=== PATIENT | female | born 1955 | race Two or more races ===

== ENCOUNTER 2025-07-24 14:24 | Emergency (ER) | payer OTHER ==
[~2025-07-24] VITALS: Ht 157.5 cm; Wt 58.1 kg
[2025-07-24] MEDS ORDERED: LOSARTAN-HCTZ1 EAC2 (15:23)
[2025-07-24] MEDS ORDERED: METFORMIN HCL500 M3 (15:23)
[2025-07-24] MEDS ORDERED: NADOLOL40 MG (15:23)
[2025-07-24] MEDS ORDERED: SYNTHROID100 MCG (15:24)
[2025-07-24] MEDS ORDERED: GLIMEPIRIDE4 M1 (15:24)
[2025-07-24] MEDS ORDERED: ATORVASTATIN CA10 MG (15:24)
[2025-07-24] MEDS ORDERED: ONDANSETRON HCL 2 MG/ML VIAL IV ONE (17:00)
[2025-07-24] MEDS ORDERED: FAMOTIDINE/PF 20 MG/2 ML VIAL IV ONE (17:00)
[2025-07-24] MEDS ORDERED: 0.9 % SODIUM CHLORIDE 1,000 ML IV SCH (17:00)
[2025-07-24 17:39] LABS: ERYTHROCYTE SEDIMENTATION RATE 21 mm/hr (0-30)
[2025-07-24 17:40] LABS: BASO % 0.2 % (0.1-1.2); EOS # 0.19 (0.04-0.54); EOS % 2.1 % (0.7-7.0); LYMPH # 2.87 (1.18-3.74); LYMPH % 31.1 % (19.3-53.1); MEAN PLATELET VOLUME 11.10 fl (9.4-12.4); MONO # 0.67 (0.24-0.82); MONO % 7.3 % (4.7-12.5); NEUT # 5.44 (1.56-6.13); NEUT % 58.9 % (34.0-71.1); RED CELL DISTRIBUTION WIDTH 15.5 % (11.6-14.4)
[2025-07-24 17:48] LABS: URINE APPEARANCE Clear; URINE BILIRRUBIN Negative (NEGATIVE); URINE BLOOD Negative; URINE COLOR Yellow; URINE LEUKOCYTE Negative; URINE NITRATE Negative; URINE PROTEIN Negative (NEGATIVE); URINE UROBILINOGEN 0.2 E.U./dl
[2025-07-24 17:52] LABS: URINE BACTERIA 7.1 uL (0.0-1933); URINE EPITHELIAL CELLS 2.6 uL (0.0-38.8); URINE RBC 3.5 uL (0.0-20.8); URINE WBC 2.7 uL (0.0-23.2)
[2025-07-24 18:02] LABS: URINE CAST 0.14 uL (0.0-1.40); URINE GLUCOSE >=1000 MG/DL (NEGATIVE); URINE KETONE >=160 (NEGATIVE)
[2025-07-24 18:14] LABS: ALT/SGPT 27 U/L (12-78); AST/SGOT 21 U/L (15-37); BILIRUBIN TOTAL 0.81 mg/dL (0.3-1.2); BUN CREA RATIO 15 (7.0-25.0); CREATININE SERUM 0.87 mg/dL (0.55-1.02); GFR 64.94; GLOBULINA 4.0 G/DL (2.4-3.5); GLUCOSE FASTING 384 mg/dL (65-100); OSMOLALITY SERUM 288 MOSM/KG (275-295)
[2025-07-24] MEDS ORDERED: INSULIN REGULAR, HUMAN 1,000 UNIT/10 ML UNITS SUBCUTANEO ONE (20:00)
[2025-07-24] MEDS ORDERED: METFORMIN HCL1000 M2 PO (22:04)
[2025-07-25] MEDS ORDERED: INSULIN REGULAR, HUMAN 1,000 UNIT/10 ML UNITS SUBCUTANEO ONE (00:15)
[2025-07-25] MEDS ORDERED: 0.9 % SODIUM CHLORIDE 1,000 ML IV SCH (00:15)
[2025-07-25] MEDS ORDERED: INSULIN REGULAR, HUMAN 1,000 UNIT/10 ML UNITS IV STA (02:05)
[2025-07-25] MEDS ORDERED: INSULIN REGULAR, HUMAN 1,000 UNIT/10 ML UNITS IV ONE (03:15)
== END 2025-07-25 04:20 | disposition home or self-care (01) ==
LOC: ER 14:24
PROVIDERS: Student in an Organized Health Care Education/Training Program
DX: E11.65 Type 2 diabetes mellitus with hyperglycemia (principal); I10 Essential (primary) hypertension; E03.8 Other specified hypothyroidism; Z88.2 Allergy status to sulfonamides
CPT/HCPCS: 36415; 71045; 82803; 96365; 96366; 99283; J1815 ×2; J2405; J3490; J7030

== ENCOUNTER 2025-07-26 13:28 | Inpatient (IN) | payer OTHER ==
[~2025-07-26] VITALS: Ht 157.5 cm; Wt 59.0 kg
[~2025-07-26 13:28] MED LIST: ATORVASTATIN CA10 MG; GLIMEPIRIDE4 M1; LOSARTAN-HCTZ1 EAC2; METFORMIN HCL1000 M2 PO; METFORMIN HCL500 M3; NADOLOL40 MG; SYNTHROID100 MCG
--- NOTE | 2025-07-26 14:02 | NUR ---
PACIENTE FAMINA, S/V EN PARAMETROS NORMALES, GLUCOSA 457 MG/DL, SE CONSULTA CON LA KAIDEN. TOSTE, SE ORDENA 10 UNIDADES INSULINA R, IV 0.9 FULL DRIP, SE MEGHA FBS, SE UBICA EBN CAMA 12 PARA EVALUACION.
[2025-07-26] MEDS ORDERED: 0.9 % SODIUM CHLORIDE 1,000 ML IV SCH (14:30)
[2025-07-26] MEDS ORDERED: INSULIN REGULAR, HUMAN 1,000 UNIT/10 ML UNITS IV ONE (14:30)
[2025-07-26 14:44] LABS: BASO % 0.1 % (0.1-1.2); EOS # 0.05 (0.04-0.54); EOS % 0.4 % (0.7-7.0); LYMPH # 1.12 (1.18-3.74); LYMPH % 8.4 % (19.3-53.1); MEAN PLATELET VOLUME 11.00 fl (9.4-12.4); MONO # 0.84 (0.24-0.82); MONO % 6.3 % (4.7-12.5); NEUT # 11.31 (1.56-6.13); NEUT % 84.5 % (34.0-71.1); RED CELL DISTRIBUTION WIDTH 15.9 % (11.6-14.4)
--- NOTE | 2025-07-26 14:48 | NUR ---
PACIENTE FEMINA, C/C HIPERGLICEMIA, SE ROSLYN MUESTRAS LLEVADAS AL LABORATORIO, SE ADMINISTRA INSULINA 10 UN IV, SE CANALIZA CON ANGIO 18 EN SANDYO MARY, SE MANTIENE EN OBSERVACION PARA SEER REEVALUADA.
[2025-07-26 15:17] LABS: ALT/SGPT 27.0 U/L (12-78); AST/SGOT 16.0 U/L (15-37); BILIRUBIN TOTAL 0.77 mg/dL (0.3-1.2); BUN CREA RATIO 22.0 (7.0-25.0); CREATININE SERUM 0.88 mg/dL (0.55-1.02); GFR 64.09; GLOBULINA 3.0 G/DL (2.4-3.5); OSMOLALITY SERUM 296.0 MOSM/KG (275-295)
[2025-07-26 15:33] LABS: URINE APPEARANCE Clear; URINE BILIRRUBIN Negative (NEGATIVE); URINE BLOOD Negative; URINE COLOR Yellow; URINE LEUKOCYTE Negative; URINE NITRATE Negative; URINE PROTEIN Negative (NEGATIVE); URINE UROBILINOGEN 0.2 E.U./dl
[2025-07-26 15:37] LABS: URINE BACTERIA 83.9 uL (0.0-1933); URINE EPITHELIAL CELLS 6.3 uL (0.0-38.8); URINE RBC 5.2 uL (0.0-20.8); URINE WBC 15.3 uL (0.0-23.2)
[2025-07-26 15:52] LABS: COVID-19 AG NEGATIVE (NEGATIVE)
[2025-07-26 15:54] LABS: URINE CAST 0.43 uL (0.0-1.40); URINE GLUCOSE >=1000 MG/DL (NEGATIVE); URINE KETONE >=160 (NEGATIVE)
[2025-07-26 15:58] LABS: GLUCOSE FASTING 456.0 mg/dL (65-100)
[2025-07-26] MEDS ORDERED: INSULIN REGULAR, HUMAN 100 UNITS in 0.9 % SODIUM CHLORIDE 100 ML IV SCH (17:15)
[2025-07-26] MEDS ORDERED: CEFTRIAXONE SODIUM 2,000 MG in 0.9 % SODIUM CHLORIDE 100 ML IV ONE (17:15)
[2025-07-26] MEDS ORDERED: ONDANSETRON HCL 4 MG in 0.9 % SODIUM CHLORIDE 50 ML IV ONE (17:15)
[2025-07-26] MEDS ORDERED: 0.9 % SODIUM CHLORIDE 1,000 ML IV ONE (17:15)
[2025-07-26] MEDS ORDERED: ACETAMINOPHEN 500 MG GEL..CAP PO ONE ×2 (17:15→19:40)
[2025-07-26] MEDS ORDERED: ONDANSETRON HCL 2 MG/ML VIAL ONE (19:41)
[2025-07-26] MEDS ORDERED: CEFTRIAXONE SODIUM 2,000 MG VIAL ONE (19:41)
[2025-07-26 20:03] LABS: INR 0.95
[2025-07-26] MEDS ORDERED: ACETAMINOPHEN 325 MG TABLET PO PRN (21:45)
[2025-07-26] MEDS ORDERED: ONDANSETRON HCL 4 MG in 0.9 % SODIUM CHLORIDE 50 ML IV PRN (21:45)
[2025-07-26 22:01] VITALS: BP 92/47
[2025-07-26 22:41] LABS: ALT/SGPT 24.0 U/L (12-78); AST/SGOT 15.0 U/L (15-37); BILIRUBIN TOTAL 0.65 mg/dL (0.3-1.2); BUN CREA RATIO 27.0 (7.0-25.0); CREATININE SERUM 0.67 mg/dL (0.55-1.02); GFR 87.79; GLOBULINA 3.0 G/DL (2.4-3.5)
[2025-07-26 22:43] LABS: GLUCOSE FASTING 370.0 mg/dL (65-100); OSMOLALITY SERUM 298.0 MOSM/KG (275-295)
[2025-07-27] VITALS (22 sets, daily range): BP systolic 70–127; BP diastolic 40–67; O2SAT 99–100
[2025-07-27] MEDS ORDERED: NOREPINEPHRINE BITARTRATE 1 MG/ML AMPUL IV ONE ×5 (01:59→17:02)
[2025-07-27] MEDS ORDERED: NOREPINEPHRINE BITARTRATE 8 MG in DEXTROSE 5 % IN WATER 250 ML IV SCH (02:00)
[2025-07-27 05:39] LABS: BASO % 0.2 % (0.1-1.2); EOS # 0.09 (0.04-0.54); EOS % 0.7 % (0.7-7.0); LYMPH # 2.84 (1.18-3.74); LYMPH % 21.7 % (19.3-53.1); MEAN PLATELET VOLUME 10.90 fl (9.4-12.4); MONO # 1.54 (0.24-0.82); MONO % 11.7 % (4.7-12.5); NEUT # 8.56 (1.56-6.13); NEUT % 65.3 % (34.0-71.1); RED CELL DISTRIBUTION WIDTH 16.1 % (11.6-14.4)
[2025-07-27] MEDS ORDERED: LEVOTHYROXINE SODIUM 100 MCG TABLET PO SCH (06:00)
[2025-07-27] MEDS ORDERED: NADOLOL 20 MG TABLET PO SCH (09:00)
[2025-07-27] MEDS ORDERED: PANTOPRAZOLE SODIUM 40 MG/VIAL VIAL IV SCH (09:00)
[2025-07-27] MEDS ORDERED: ATORVASTATIN CALCIUM 10 MG TABLET PO SCH (09:00)
[2025-07-27] MEDS ORDERED: LOSARTAN/HYDROCHLOROTHIAZIDE 1 UDTAB TABLET PO SCH (09:00)
[2025-07-27] MEDS ORDERED: NOREPINEPHRINE BITARTRATE 4 MG in DEXTROSE 5 % IN WATER 250 ML IV SCH (09:15)
[2025-07-27 12:19] LABS: ALT/SGPT 18.0 U/L (12-78); AST/SGOT 18.0 U/L (15-37); BILIRUBIN TOTAL 0.54 mg/dL (0.3-1.2); BUN CREA RATIO 19.0 (7.0-25.0); CREATININE SERUM 0.58 mg/dL (0.55-1.02); GFR 103.69; GLOBULINA 2.6 G/DL (2.4-3.5)
[2025-07-27 12:28] LABS: GLUCOSE FASTING 223.0 mg/dL (65-100); OSMOLALITY SERUM 286.0 MOSM/KG (275-295)
[2025-07-27] MEDS ORDERED: RINGERS SOLUTION,LACTATED 1,000 ML IV ONE (14:00)
[2025-07-27] MEDS ORDERED: SODIUM BICARBONATE 50 MEQ in SODIUM CHLORIDE 0.45 % 1,000 ML IV SCH (15:30)
[2025-07-27] MEDS ORDERED: MAGNESIUM SULFATE IN WATER 50 ML IV NR (16:00)
[2025-07-27] MEDS ORDERED: SODIUM BICARBONATE 1 MEQ/ML DISP.SYRIN 50ML IV ONE (16:49)
[2025-07-27] MEDS ORDERED: MAGNESIUM SULFATE 50% 1,000 MG/2 ML VIAL ONE ×2 (17:50→20:27)
[2025-07-27] MEDS ORDERED: ACETAMINOPHEN 500 MG GEL..CAP PO ONE (23:19)
[2025-07-28] VITALS (20 sets, daily range): BP systolic 73–126; BP diastolic 41–62; O2SAT 98–100
[2025-07-28 07:44] LABS: BASO % 0.2 % (0.1-1.2); EOS # 0.37 (0.04-0.54); EOS % 3.9 % (0.7-7.0); LYMPH # 3.36 (1.18-3.74); LYMPH % 35.9 % (19.3-53.1); MEAN PLATELET VOLUME 11.60 fl (9.4-12.4); MONO # 0.90 (0.24-0.82); MONO % 9.6 % (4.7-12.5); NEUT # 4.69 (1.56-6.13); NEUT % 50.1 % (34.0-71.1); RED CELL DISTRIBUTION WIDTH 16.0 % (11.6-14.4)
[2025-07-28] MEDS ORDERED: INSULIN REGULAR, HUMAN 1,000 UNIT/10 ML UNITS ONE (08:03)
[2025-07-28 08:38] LABS: ALT/SGPT 18.0 U/L (12-78); AST/SGOT 14.0 U/L (15-37); BILIRUBIN TOTAL 0.5 mg/dL (0.3-1.2); BUN CREA RATIO 13.0 (7.0-25.0); CREATININE SERUM 0.45 mg/dL (0.55-1.02); GFR 138.97; GLOBULINA 2.6 G/DL (2.4-3.5); GLUCOSE FASTING 178.0 mg/dL (65-100); OSMOLALITY SERUM 287.0 MOSM/KG (275-295)
[2025-07-28 08:43] LABS: T4 TOTAL 7.89 UG/DL (4.8-13.9); TSH 1.28 uIU/mL (0.358-3.74)
[2025-07-28] MEDS ORDERED: ACETAMINOPHEN 500 MG GEL..CAP PO PRN (08:45)
[2025-07-28] MEDS ORDERED: INSULIN NPH HUMAN ISOPHANE 1,000 UNITS/10 ML UNITS SUBCUTANEO STA (13:56)
[2025-07-28] MEDS ORDERED: INSULIN LISPRO 1,000 UNIT/10 ML UNITS SUBCUTANEO PRN (14:00)
[2025-07-28] MEDS ORDERED: DEXTROSE 50 % IN WATER 0.5 G/ML DISP.SYRIN IV PRN (14:00)
[2025-07-28] MEDS ORDERED: POTASSIUM PHOS,M-BASIC-D-BASIC 15 MM in 0.9 % SODIUM CHLORIDE 250 ML IV ONE (14:00)
[2025-07-28] MEDS ORDERED: POLYETHYLENE GLYCOL 3350 17 GM BLIST.PACK PO SCH (17:00)
[2025-07-28] MEDS ORDERED: INSULIN NPH HUMAN ISOPHANE 1,000 UNITS/10 ML UNITS SUBCUTANEO SCH (21:00)
[2025-07-28] MEDS ORDERED: INSULIN NPH HUMAN ISOPHANE 1,000 UNITS/10 ML UNITS SUBCUTANEO ONE (21:27)
[2025-07-29] VITALS (17 sets, daily range): BP systolic 93–163; BP diastolic 50–92; O2SAT 94–100
[2025-07-29] MEDS ORDERED: NOREPINEPHRINE BITARTRATE 1 MG/ML AMPUL IV ONE (05:08)
[2025-07-29 07:35] LABS: BUN CREA RATIO 9.0 (7.0-25.0); CREATININE SERUM 0.44 mg/dL (0.55-1.02); GFR 142.63; OSMOLALITY SERUM 294.0 MOSM/KG (275-295)
[2025-07-29 07:39] LABS: GLUCOSE FASTING 247.0 mg/dL (65-100)
[2025-07-29] MEDS ORDERED: INSULIN LISPRO 1,000 UNIT/10 ML UNITS SUBCUTANEO SCH (08:00)
[2025-07-29] MEDS ORDERED: INSULIN GLARGINE,HUM.REC.ANLOG 1,000 UNITS/10 ML UNITS SUBCUTANEO SCH (09:00)
[2025-07-29] MEDS ORDERED: INSULIN LISPRO 1,000 UNIT/10 ML UNITS SUBCUTANEO ONE ×2 (09:30→12:13)
[2025-07-29] MEDS ORDERED: INSULIN GLARGINE,HUM.REC.ANLOG 1,000 UNITS/10 ML UNITS SUBCUTANEO ONE (09:32)
[2025-07-29] MEDS ORDERED: RINGERS SOLUTION,LACTATED 1,000 ML IV SCH (10:30)
[2025-07-29] MEDS ORDERED: COSYNTROPIN 0.25 MG VIAL IV ONE (16:00)
[2025-07-30 05:41] VITALS: BP 121/66; O2SAT 97
[2025-07-30 06:51] LABS: ALT/SGPT 19.0 U/L (12-78); AST/SGOT 17.0 U/L (15-37); BILIRUBIN TOTAL 0.52 mg/dL (0.3-1.2); BUN CREA RATIO 10.0 (7.0-25.0); CREATININE SERUM 0.4 mg/dL (0.55-1.02); GFR 159.21; GLOBULINA 2.3 G/DL (2.4-3.5); OSMOLALITY SERUM 295.0 MOSM/KG (275-295)
[2025-07-30 06:52] LABS: GLUCOSE FASTING 236.0 mg/dL (65-100)
[2025-07-30] MEDS ORDERED: ENOXAPARIN SODIUM 40 MG/0.4 ML SYRINGE SUBCUTANEO SCH (09:00)
[2025-07-30] MEDS ORDERED: INSULIN GLARGINE,HUM.REC.ANLOG 1,000 UNITS/10 ML UNITS SUBCUTANEO SCH (09:00)
[2025-07-30 09:29] VITALS: BP 99/56; O2SAT 98
[2025-07-30] MEDS ORDERED: SODIUM CHLORIDE 0.45 % 1,000 ML IV SCH (12:15)
[2025-07-30] MEDS ORDERED: POTASSIUM CHLORIDE IN WATER 100 ML IV SCH (12:45)
[2025-07-30] MEDS ORDERED: LACTULOSE 20 G/30 ML BLIST.PACK PO STA (13:20)
[2025-07-30] MEDS ORDERED: MAGNESIUM HYDROXIDE 30 ML BLIST.PACK PO STA (13:21)
[2025-07-30] MEDS ORDERED: MINERAL OIL 30 ML BLIST.PACK PO STA (13:21)
[2025-07-30 18:11] VITALS: BP 94/61
[2025-07-30 19:14] LABS: BASO % 0.2 % (0.1-1.2); EOS # 0.26 (0.04-0.54); EOS % 2.7 % (0.7-7.0); LYMPH # 2.00 (1.18-3.74); LYMPH % 20.8 % (19.3-53.1); MEAN PLATELET VOLUME 10.50 fl (9.4-12.4); MONO # 1.26 (0.24-0.82); NEUT # 6.06 (1.56-6.13); NEUT % 63.0 % (34.0-71.1); RED CELL DISTRIBUTION WIDTH 16.6 % (11.6-14.4)
[2025-07-30 19:38] LABS: MONO % 13.1 % (4.7-12.5)
[2025-07-31 02:54] VITALS: BP 94/56; O2SAT 99
[2025-07-31 06:20] LABS: BASO % 0.3 % (0.1-1.2); EOS # 0.26 (0.04-0.54); EOS % 4.4 % (0.7-7.0); LYMPH # 2.62 (1.18-3.74); LYMPH % 43.9 % (19.3-53.1); MEAN PLATELET VOLUME 11.00 fl (9.4-12.4); MONO # 0.74 (0.24-0.82); NEUT # 2.32 (1.56-6.13); NEUT % 38.8 % (34.0-71.1); RED CELL DISTRIBUTION WIDTH 16.6 % (11.6-14.4)
[2025-07-31 06:50] LABS: MONO % 12.4 % (4.7-12.5)
[2025-07-31 07:32] LABS: ALT/SGPT 16.0 U/L (12-78); AST/SGOT 18.0 U/L (15-37); BILIRUBIN TOTAL 0.51 mg/dL (0.3-1.2); BUN CREA RATIO 11.0 (7.0-25.0); CREATININE SERUM 0.38 mg/dL (0.55-1.02); GFR 168.92; GLOBULINA 2.0 G/DL (2.4-3.5); GLUCOSE FASTING 174.0 mg/dL (65-100); OSMOLALITY SERUM 292.0 MOSM/KG (275-295)
[2025-07-31 09:13] VITALS: BP 111/69; O2SAT 97
[2025-07-31] MEDS ORDERED: POTASSIUM CHLORIDE IN WATER 100 ML IV NR (12:15)
[2025-07-31] MEDS ORDERED: IRON FUM,PS/FOLIC/BCOMP,C NO.9 1 CAP CAPSULE PO NR (12:45)
[2025-07-31 16:11] LABS: PANCREATIC ISLET CELL Negative (Neg:<1:1)
[2025-07-31 18:07] LABS: GLUTAMIC ACID DECARBOXYLASE 30.6 U/mL (0.0-5.0)
[2025-07-31 18:15] VITALS: BP 180/63
[2025-08-01] MEDS ORDERED: ENALAPRILAT DIHYDRATE 1.25 MG/ML VIAL IV PRN (01:15)
[2025-08-01 02:02] VITALS: BP 114/61; O2SAT 98
[2025-08-01 05:36] LABS: BASO % 0.4 % (0.1-1.2); EOS # 0.21 (0.04-0.54); EOS % 4.0 % (0.7-7.0); LYMPH # 2.16 (1.18-3.74); LYMPH % 41.5 % (19.3-53.1); MEAN PLATELET VOLUME 10.60 fl (9.4-12.4); MONO # 0.80 (0.24-0.82); NEUT # 2.00 (1.56-6.13); NEUT % 38.5 % (34.0-71.1); RED CELL DISTRIBUTION WIDTH 16.7 % (11.6-14.4)
[2025-08-01 05:48] LABS: MONO % 15.4 % (4.7-12.5)
[2025-08-01 06:42] LABS: ALT/SGPT 25.0 U/L (12-78); AST/SGOT 39.0 U/L (15-37); BILIRUBIN TOTAL 0.42 mg/dL (0.3-1.2); BUN CREA RATIO 12.0 (7.0-25.0); CREATININE SERUM 0.52 mg/dL (0.55-1.02); GFR 117.62; GLOBULINA 2.2 G/DL (2.4-3.5); GLUCOSE FASTING 117.0 mg/dL (65-100); OSMOLALITY SERUM 295.0 MOSM/KG (275-295)
[2025-08-01] MEDS ORDERED: PANTOPRAZOLE SODIUM 40 MG TABLET.DR PO SCH (09:00)
[2025-08-01] MEDS ORDERED: IRON FUM,PS/FOLIC/BCOMP,C NO.9 1 CAP CAPSULE PO SCH (09:00)
[2025-08-01 09:11] VITALS: BP 116/62; O2SAT 96
[2025-08-01] MEDS ORDERED: POTASSIUM CHLORIDE 20MEQ/100ML H2O PB IV NR (17:00)
[2025-08-01 21:19] VITALS: BP 130/77; O2SAT 100
[2025-08-02 02:12] VITALS: BP 99/61; O2SAT 98
[2025-08-02 09:48] VITALS: BP 117/68; O2SAT 97
[2025-08-02] MEDS ORDERED: INTEGRA PLUS C1 EACH PO (13:36)
== END 2025-08-02 13:57 | disposition home or self-care (01) | DRG 638 ==
LOC: ER 13:28 → ICU-2 23:12 → MEDJ 07-29 17:49
PROVIDERS: General Practice; Internal Medicine Endocrinology, Diabetes & Metabolism; ADMIT Internal Medicine; ATTEND Internal Medicine
PROC: 4A033R1 Measurement of Arterial Saturation, Peripheral, Percutaneous Approach (ICD-10-PCS; principal; 2025-07-26)
PROC: 05HB33Z Insertion of Infusion Device into Right Basilic Vein, Percutaneous Approach (ICD-10-PCS; 2025-07-29)
DX: E11.10 Type 2 diabetes mellitus with ketoacidosis without coma (principal); E27.40 Unspecified adrenocortical insufficiency; E11.65 Type 2 diabetes mellitus with hyperglycemia; Z79.4 Long term (current) use of insulin; E86.0 Dehydration; E13.9 Other specified diabetes mellitus without complications